=== PATIENT | female | born 1985 | race Caucasian/White ===

== ENCOUNTER 2024-08-12 08:36 | Inpatient (IN) | payer BC ==
[2024-08-12] MEDS ORDERED: Ketorolac Tromethamine 30 MG (1 mL) VIAL ONE (09:10)
[2024-08-12] MEDS ORDERED: Dexamethasone 10 MG/ML VIAL ONE (09:10)
[2024-08-12] MEDS ORDERED: Cyclobenzaprine 10 MG TAB ONE (09:10)
[2024-08-12] MEDS ORDERED: Ondansetron ODT 4 MG TAB ONE (09:11)
[2024-08-12] MEDS ORDERED: HYDROcodone/Acetaminophen 5/325 mg Tablet ONE (10:39)
[2024-08-12] MEDS ORDERED: Lidocaine 4% Patch ONE (11:59)
[2024-08-12] MEDS ORDERED: Diazepam 5 MG TAB ONE (11:59)
[2024-08-12 13:39] LABS: #Basophils 0.04 10x3/uL (0.0-0.2); #Eosinophils 0.15 10x3/uL (0.0-0.5); #Monocytes 0.15 10x3/uL (0.0-1.1); #Neutrophils 10.71 10x3/uL (1.5-8.4); %Basophils 0.3 % (0.0-2.0); %Eosinophils 1.2 % (0.0-6.0); %Lymphocytes 9.1 % (18.0-47.0); %Monocytes 1.2 % (0.0-10.0); %Neutrophils 87.8 % (40.0-75.0); Hematocrit 42.3 % (34.9-44.5); Hemoglobin 13.7 g/dL (12.0-15.5); Mean Corpuscular HGB CONC 32.4 g/dL (32.0-36.0); Mean Corpuscular Hemoglobin 29.4 pg (27.0-33.0); Mean Corpuscular Volume 90.8 fL (81.6-98.3); RBC Distribution Width 13.9 % (11.5-14.5); Red Blood Cell (RBC) Count 4.66 10x6/uL (3.90-5.03); White Blood Cell (WBC) Count 12.21 10x3/uL (3.5-10.5)
[2024-08-12 13:44] LABS: Mean Platelet Volume 11.9 fL (7.4-10.4); Platelet Count 274 10x3/uL (150-450)
[2024-08-12 13:55] LABS: Anion Gap 14 mmol/L (10-20); BUN (Urea Nitrogen) 12 mg/dL (7.0-18.7); Calc. Creatinine Clearance 0 mL/min (70-130); Calcium 9.9 mg/dL (7.8-10.44); Carbon Dioxide 20 mmol/L (22-29); Chloride 105 mmol/L (98-107); Estimated GFR 79; Glucose 150 mg/dL (70-105); Potassium 4.3 mmol/L (3.5-5.1); Sodium 135 mmol/L (136-145)
[2024-08-12 13:57] LABS: BHCG - Serum Negative (NEGATIVE); Pregs Control Background? CLEAR/WHITE (CLR/WHITE); Pregs Control Bar Appear? YES (CONTROL BAR)
[2024-08-12] MEDS ORDERED: Senokot S 8.6-50 MG TAB PO PRN (14:32)
[2024-08-12] MEDS ORDERED: Ondansetron PF 4 MG/2 ML Vial IVP PRN (14:32)
[2024-08-12] MEDS ORDERED: Guaifenesin DM 100-10/5 ML UDCUP PO PRN (14:32)
[2024-08-12] MEDS ORDERED: Ketorolac Tromethamine 30 MG (1 mL) VIAL IVP PRN (15:41)
[2024-08-12] MEDS: Morphine 2 MG/ML VIAL SLOW IVP PRN (15:55)
[2024-08-12 16:30] VITALS: BMI 36.1
[2024-08-12] MEDS: traMADol HCl 50 MG TAB PO PRN (16:51)
[2024-08-12] MEDS: Sodium Chloride 0.9% 1,000 ML IV SCH (16:53)
[2024-08-12] MEDS: HYDROcodone/Acetaminophen 10/325 mg Tablet PO PRN (18:27)
[2024-08-12 18:39] LABS: Bilirubin Neg (Negative); Blood, Urine Negative (Negative); Clarity Clear (Clear); Glucose, Urine (Dipstick) 50 mg/dL (Negative); Ketone, Urine Negative (Negative); Leukocyte Negative (Negative); Nitrite Negative (Negative); Protein, Urine (Dipstick) 15 mg/dl (Neg-Trace); Urobilinogen Normal mg/dL (Less than 2); pH, Urine 6.5 (5.0-9.0)
[2024-08-12 18:55] LABS: Bacteria/HPF 4+ HPF (None Seen); CAUTI Indications for Culture Dysuria,urgency,freq; RBC/HPF 0-3 HPF (0-3); Squamous Epithelial 0-3 HPF (0-3); Urine Culture Reflex No No; WBC/HPF 0-3 HPF (0-3)
[2024-08-12] MEDS: Naproxen 500 MG TAB PO SCH (20:32)
[2024-08-12] MEDS: Famotidine 20 MG TAB PO SCH (20:32)
[2024-08-13 05:10] LABS: Anion Gap 18 mmol/L (10-20); BUN (Urea Nitrogen) 13 mg/dL (7.0-18.7); Calc. Creatinine Clearance 130 mL/min (70-130); Calcium 9.4 mg/dL (7.8-10.44); Carbon Dioxide 16 mmol/L (22-29); Chloride 108 mmol/L (98-107); Estimated GFR 82; Glucose 250 mg/dL (70-105); Potassium 4.5 mmol/L (3.5-5.1); Sodium 137 mmol/L (136-145)
[2024-08-13 05:45] LABS: #Basophils 0.03 10x3/uL (0.0-0.2); #Eosinophils 0.08 10x3/uL (0.0-0.5); #Monocytes 1.14 10x3/uL (0.0-1.1); #Neutrophils 13.18 10x3/uL (1.5-8.4); %Basophils 0.2 % (0.0-2.0); %Eosinophils 0.5 % (0.0-6.0); %Lymphocytes 9.2 % (18.0-47.0); %Monocytes 7.1 % (0.0-10.0); %Neutrophils 82.4 % (40.0-75.0); Hematocrit 39.7 % (34.9-44.5); Hemoglobin 12.9 g/dL (12.0-15.5); Mean Corpuscular HGB CONC 32.5 g/dL (32.0-36.0); Mean Corpuscular Hemoglobin 30.1 pg (27.0-33.0); Mean Corpuscular Volume 92.8 fL (81.6-98.3); Mean Platelet Volume 11.5 fL (7.4-10.4); Platelet Count 252 10x3/uL (150-450); RBC Distribution Width 13.9 % (11.5-14.5); Red Blood Cell (RBC) Count 4.28 10x6/uL (3.90-5.03); White Blood Cell (WBC) Count 15.99 10x3/uL (3.5-10.5)
[2024-08-13] MEDS: Enoxaparin 40 MG (0.4 mL) SYRINGE SC SCH (09:20)
[2024-08-13] MEDS ORDERED: Magnevist 469MG/ML 20 ML VIAL ONE (11:38)
[2024-08-13 14:50] LABS: Hemoglobin A1c 5.8 % (4.0-6.0)
[2024-08-13] MEDS: Ketorolac Tromethamine 30 MG (1 mL) VIAL IVP PRN (19:45)
[2024-08-14] MEDS: Morphine 4 MG/ML VIAL SLOW IVP PRN (06:34)
[2024-08-14] MEDS: Dexamethasone 4 MG TAB PO SCH (08:13)
[2024-08-14] MEDS: Polyethylene Glycol 3350 17 GM Packet PO SCH (08:19)
[2024-08-14] MEDS: Lidocaine 4% Patch TD SCH (11:30)
[2024-08-14] MEDS: REMOVAL LIDOCAINE TOP SCH (23:15)
[2024-08-15 04:24] LABS: Anion Gap 12 mmol/L (10-20); BUN (Urea Nitrogen) 15 mg/dL (7.0-18.7); Calc. Creatinine Clearance 139 mL/min (70-130); Calcium 9.3 mg/dL (7.8-10.44); Carbon Dioxide 23 mmol/L (22-29); Chloride 107 mmol/L (98-107); Estimated GFR 89; Glucose 199 mg/dL (70-105); Potassium 4.3 mmol/L (3.5-5.1); Sodium 138 mmol/L (136-145)
[2024-08-15 04:38] LABS: Hematocrit 37.6 % (34.9-44.5); Hemoglobin 12.6 g/dL (12.0-15.5); Mean Corpuscular HGB CONC 33.5 g/dL (32.0-36.0); Mean Corpuscular Hemoglobin 30.4 pg (27.0-33.0); Mean Corpuscular Volume 90.8 fL (81.6-98.3); Platelet Count 234 10x3/uL (150-450); Red Blood Cell (RBC) Count 4.14 10x6/uL (3.90-5.03); White Blood Cell (WBC) Count 13.47 10x3/uL (3.5-10.5)
[2024-08-15 04:44] LABS: #Basophils 0.04 10x3/uL (0.0-0.2); #Eosinophils 0.28 10x3/uL (0.0-0.5); #Monocytes 1.07 10x3/uL (0.0-1.1); #Neutrophils 9.31 10x3/uL (1.5-8.4); %Basophils 0.3 % (0.0-2.0); %Eosinophils 2.1 % (0.0-6.0); %Lymphocytes 20.1 % (18.0-47.0); %Monocytes 7.9 % (0.0-10.0); %Neutrophils 69.2 % (40.0-75.0); Eosinophils 1 % (0-10); Lymphocytes 18 % (21-51); MDiff Complete? YES; Monocytes 8 % (0-10); Neutrophil 73 % (42-75); Platelet Adequacy Comment Appears Adequate; RBC Morphology Within Normal Limits
[2024-08-15] MEDS: Gabapentin 300 MG CAP PO SCH (09:35)
[2024-08-15] MEDS: Acetaminophen 325 MG TAB PO SCH (09:35)
[2024-08-15] MEDS: Baclofen 10 MG TAB PO SCH ×2 (09:35→19:52)
[2024-08-15] MEDS ORDERED: Lidocaine 4% Patch TD SCH (11:30)
[2024-08-15] MEDS: Ketorolac Tromethamine 30 MG (1 mL) VIAL IVP SCH (12:05)
[2024-08-15 19:27] LABS: Amphetamine Not Detected (NotDetected); Barbiturates Screen Not Detected (NotDetected); Benzodiazepine Screen Not Detected (NotDetected); Cocaine Metabolite Screen Not Detected (NotDetected); Methadone Not Detected (NotDetected); Methamphetamine Not Detected (NotDetected); Opiate Screen Detected (NotDetected); Oxycodone Screen Not Detected (NotDetected); Phencyclidine (PCP) Not Detected (NotDetected); THC/Cannabinoid Screen Not Detected (NotDetected); Tricyclic Screen Not Detected (NotDetected)
[2024-08-15] MEDS ORDERED: Baclofen 10 MG TAB PO SCH (21:00)
[2024-08-16 04:16] LABS: #Basophils 0.03 10x3/uL (0.0-0.2); #Eosinophils Less than 0.03 10x3/uL (0.0-0.5); #Monocytes 0.98 10x3/uL (0.0-1.1); #Neutrophils 9.19 10x3/uL (1.5-8.4); %Basophils 0.2 % (0.0-2.0); %Eosinophils 0.2 % (0.0-6.0); %Lymphocytes 15.3 % (18.0-47.0); %Monocytes 8.1 % (0.0-10.0); %Neutrophils 75.7 % (40.0-75.0); Hematocrit 39.1 % (34.9-44.5); Mean Corpuscular HGB CONC 33.2 g/dL (32.0-36.0); Mean Corpuscular Hemoglobin 30.7 pg (27.0-33.0); Mean Corpuscular Volume 92.2 fL (81.6-98.3); Mean Platelet Volume 11.5 fL (7.4-10.4); Platelet Count 209 10x3/uL (150-450); RBC Distribution Width 14.1 % (11.5-14.5); Red Blood Cell (RBC) Count 4.24 10x6/uL (3.90-5.03); White Blood Cell (WBC) Count 12.14 10x3/uL (3.5-10.5)
[2024-08-16 04:38] LABS: Anion Gap 15 mmol/L (10-20); BUN (Urea Nitrogen) 16 mg/dL (7.0-18.7); Calc. Creatinine Clearance 136 mL/min (70-130); Calcium 9.5 mg/dL (7.8-10.44); Carbon Dioxide 23 mmol/L (22-29); Chloride 107 mmol/L (98-107); Estimated GFR 87; Glucose 149 mg/dL (70-105); Magnesium 2.5 mg/dL (1.6-2.6); Potassium 4.1 mmol/L (3.5-5.1); Sodium 141 mmol/L (136-145)
[2024-08-16 05:50] LABS: Bilirubin Neg (Negative); Blood, Urine Negative (Negative); Clarity Clear (Clear); Glucose, Urine (Dipstick) Normal (Negative); Ketone, Urine Negative (Negative); Leukocyte Negative (Negative); Nitrite Negative (Negative); Protein, Urine (Dipstick) 15 mg/dl (Neg-Trace); Specific Gravity, Urine 1.005 (1.005-1.030); Urobilinogen Normal mg/dL (Less than 2); pH, Urine 6.5 (5.0-9.0)
[2024-08-16 05:58] LABS: Bacteria/HPF 2+ HPF (None Seen); RBC/HPF None Seen HPF (0-3); Squamous Epithelial 0-3 HPF (0-3); WBC/HPF None Seen HPF (0-3)
[2024-08-16] MEDS ORDERED: Ketorolac Tromethamine 30 MG (1 mL) VIAL IVP PRN (09:19)
[2024-08-16 13:08] LABS: Hep A IgM AB NONREACTIVE (NonReactive); Hep A IgM S/CO 0.27 S/CO (0-0.79); Hep B Core IgM Index 0.11 S/CO (0-0.79); Hep C IgG Ab NONREACTIVE S/CO (NonReactive); Hep C Index 0.09 S/CO (0-0.79); Hepatitis B Core IgM Abs NONREACTIVE S/CO (NonReactive)
[2024-08-16] MEDS: Ibuprofen 200 MG TAB PO SCH (13:08)
[2024-08-16 13:42] LABS: HBsAg Index 0.25 S/CO (0-0.99); Hep B Surf Ag NONREACTIVE S/CO (NonReactive)
[2024-08-16] MEDS: Dexamethasone 4 MG TAB PO SCH (15:02)
[2024-08-17 04:31] LABS: #Basophils Less than 0.03 10x3/uL (0.0-0.2); #Eosinophils Less than 0.03 10x3/uL (0.0-0.5); #Monocytes 0.61 10x3/uL (0.0-1.1); #Neutrophils 10.18 10x3/uL (1.5-8.4); %Basophils 0.2 % (0.0-2.0); %Lymphocytes 9.8 % (18.0-47.0); %Neutrophils 84.2 % (40.0-75.0); Hematocrit 38.3 % (34.9-44.5); Hemoglobin 12.4 g/dL (12.0-15.5); Mean Corpuscular HGB CONC 32.4 g/dL (32.0-36.0); Mean Corpuscular Hemoglobin 29.7 pg (27.0-33.0); Mean Corpuscular Volume 91.6 fL (81.6-98.3); Mean Platelet Volume 11.3 fL (7.4-10.4); Platelet Count 252 10x3/uL (150-450); RBC Distribution Width 13.9 % (11.5-14.5); Red Blood Cell (RBC) Count 4.18 10x6/uL (3.90-5.03); White Blood Cell (WBC) Count 12.09 10x3/uL (3.5-10.5)
[2024-08-17 04:54] LABS: Anion Gap 16 mmol/L (10-20); BUN (Urea Nitrogen) 16 mg/dL (7.0-18.7); Calc. Creatinine Clearance 142 mL/min (70-130); Calcium 9.3 mg/dL (7.8-10.44); Carbon Dioxide 20 mmol/L (22-29); Chloride 107 mmol/L (98-107); Estimated GFR 92; Glucose 268 mg/dL (70-105); Magnesium 2.3 mg/dL (1.6-2.6); Potassium 4.5 mmol/L (3.5-5.1); Sodium 138 mmol/L (136-145)
[2024-08-17] MEDS ORDERED: Glucagon 1 MG/ML KIT IM PRN (08:00)
[2024-08-17] MEDS ORDERED: Dextrose 5% in Water 1,000 ML IV PRN (08:00)
[2024-08-17] MEDS ORDERED: Dextrose 50% Abboject 50 ML SYRINGE SLOW IVP PRN (08:00)
[2024-08-17] MEDS ORDERED: tiZANidine HCl 4 MG TAB PO SCH (09:00)
[2024-08-17] MEDS: tiZANidine HCl 4 MG TAB PO SCH ×2 (09:40→15:01)
[2024-08-17] MEDS: Pantoprazole 40 MG DR.TAB PO SCH (09:41)
[2024-08-17] MEDS: Gabapentin 300 MG CAP PO SCH ×2 (09:57→14:59)
[2024-08-17] MEDS: Insulin Lispro 100 UNIT/ML 10 ML VIAL SC PRN ×2 (10:00→20:16)
[2024-08-17 12:27] LABS: Glucose 298 mg/dL (70-105)
[2024-08-17] MEDS: Morphine 4 MG/ML VIAL SLOW IVP SCH (16:16)
[2024-08-17 17:09] LABS: Glucose 194 mg/dL (70-105)
[2024-08-17] MEDS: Diazepam 10 MG/2 ML SYRINGE IVP SCH (17:55)
[2024-08-17 22:35] VITALS: BP 142/69; TEMP 98.2
== END 2024-08-17 21:00 | disposition short-term general hospital (02) | DRG 552 ==
LOC: CSHERS 08:36 → CSHTELE 15:44 → CSHERS 16:19 → UNDOADMOB 16:20 → CSHTELE 16:20 → OBSVTOIN 08-13 16:44 → UNDOADMOB 08-13 16:49 → CSHTELE 08-13 16:49
PROVIDERS: ADMIT Hospitalist; ATTEND Family Medicine
DX: M51.26 Other intervertebral disc displacement, lumbar region (principal); I95.1 Orthostatic hypotension; R03.0 Elevated blood-pressure reading, without diagnosis of hypertension; K76.0 Fatty (change of) liver, not elsewhere classified; R73.03 Prediabetes; M79.662 Pain in left lower leg; Z88.0 Allergy status to penicillin; M48.061 Spinal stenosis, lumbar region without neurogenic claudication; Z88.2 Allergy status to sulfonamides
CPT/HCPCS: 36415; 36416; 71275; 72131; 72158; 74174; 80048; 80074; 80306; 81001; 83036; 83735; 84703; 85025; 96372; 96374; 96376; G0378; J1100; J1650; J1815; J1885; J2270; J2272; J3360; J7030; J8540; Q0162